=== PATIENT | female | born 1980 | race Caucasian/White ===

== ENCOUNTER → 2024-02-01 15:46 | Outpatient (REF) | payer OTHER, SELFPAY | LOC: WDC 15:46 | PROVIDERS: ATTENDING PHYSICIAN Family Medicine | DX: R22.1 Localized swelling, mass and lump, neck (principal); Z12.31 Encounter for screening mammogram for malignant neoplasm of breast | CPT/HCPCS: 76536; 77063; 77067 ==

== ENCOUNTER → 2024-04-27 15:19 | Outpatient (REF) | payer OTHER, SELFPAY | LOC: RAD 15:19 | PROVIDERS: ATTENDING PHYSICIAN Family Medicine | DX: S60.949A Unspecified superficial injury of unspecified finger, initial encounter (principal) | CPT/HCPCS: 73140 ==

== ENCOUNTER → 2024-09-08 15:43 | Outpatient (REF) | payer OTHER, SELFPAY ==
[2024-09-08 17:00] LABS: Urine Albumin Negative (Neg - Trace); Urine Bilirubin Negative (Negative); Urine Character Clear (Clear); Urine Color Yellow; Urine Glucose Negative (Negative); Urine Ketone Negative (Negative); Urine Leukocyte Negative (Negative); Urine Nitrite Negative (Negative); Urine Occult Blood Negative (Negative); Urine Specific Gravity 1.025 (<1.030); Urine Urobilinogen Negative (Neg - 1+)
[2024-09-08 17:03] LABS: % Basophils 0.5 % (0-2); % Eosinophils 0.5 % (0-6); % Immature Granulocytes 0.3 % (0-0.5); % Lymphocytes 35.3 % (20.5-51.1); % Monocytes 6.2 % (1.7-9.3); % Neutrophils 57.2 % (42.2-75.2); Absolute Lymphocytes 2.8 10^3/uL (1.2-3.4); Absolute Monocytes 0.5 10^3/uL (0.1-0.6); Absolute Neutrophils 4.5 10^3/uL (1.4-6.5); HCG, Urine Qualitative Screen Negative; Hematocrit 43.4 % (37.0-47.0); Hemoglobin 14.3 g/dL (12.0-16.0); Mean Corp Hgb Conc. 32.9 g/dL (33.0-37.0); Mean Corpuscular Hgb 30.6 pg (27.0-31.0); Mean Corpuscular Volume 92.7 fL (81.0-99.0); Mean Platelet Volume 9.7 fL (7.4-10.4); Nucleated Red Blood Cells % 0 %; Platelet Count 239 10^3/uL (130-400); Red Blood Cell Count 4.68 10^6/uL (4.20-5.40); Red Cell Dist. Width 11.9 % (11.5-14.5); White Blood Cell Count 7.8 10^3/uL (4.8-10.8)
[2024-09-08 17:18] LABS: ALT (SGPT) 28 U/L (0-35); AST (SGOT) 29 U/L (14-36); Albumin 4.8 g/dl (3.5-5.0); Alkaline Phosphatase 54 U/L (38-126); Blood Urea Nitrogen 17 mg/dl (7-17); Calcium 9.2 mg/dl (8.4-10.2); Carbon Dioxide 27 mmol/L (22-30); Chloride 100 mmol/L (98-107); Glucose 83 mg/dl (70-99); Potassium 4.7 mmol/L (3.5-5.1); Sodium 138 mmol/L (135-145); Total Bilirubin 0.5 mg/dl (0.2-1.3); Total Protein 7.7 g/dl (6.3-8.2); eGFR > 60.00
[2024-09-08 17:20] LABS: C-Reactive Protein < 5.00 mg/L (0.0-10.00)
== END ==
LOC: REG 15:43
PROVIDERS: ATTENDING PHYSICIAN Family Medicine
DX: R10.9 Unspecified abdominal pain (principal)
CPT/HCPCS: 36415; 80053; 81003; 81025; 85025; 86140

== ENCOUNTER → 2024-09-09 07:24 | Outpatient (REF) | payer OTHER, SELFPAY ==
[2024-09-09 13:34] LABS: Procalcitonin < 0.05 ng/ml (0.0-0.25)
== END ==
LOC: REG 07:24
PROVIDERS: ATTENDING PHYSICIAN Family Medicine
DX: R10.9 Unspecified abdominal pain (principal)
CPT/HCPCS: 36415; 84145

== ENCOUNTER 2024-10-24 17:58 | Emergency (ER) | payer OTHER, SELFPAY ==
[2024-10-24 18:09] VITALS: BP 106/79
--- NOTE | 2024-10-24 18:09 | ED.GENMED ---
ED Provider Triage
-
Patient seen by provider in Triage?: Seen in Triage
Attestation: A medical screening examination has been initiated by a qualified medical provider. Based on the assessment performed at this time, it has been determined that an emergent medical condition may exist and the patient has been informed
that further medical evaluation and possible additional diagnostic testing may be needed.
HPI: 44-year-old female presenting to the emergency department for evaluation of fever and flulike symptoms that started this past Thursday into Thursday, today had a temperature of 105.6 just prior to arrival. Took Motrin prior to arrival. 103
fever noted in triage. Patient also endorses cough and mild sore throat. Offered additional Tylenol which patient declined. COVID and flu testing ordered. Patient otherwise hemodynamically stable.
GENERAL: Alert , in no apparent distress
EYE: No visual abnormalities.
NECK: Trachea midline
ENT: No visible abnormalities.
LUNGS: No acute respiratory distress
NEUROLOGICAL: Alert and oriented
SKIN: Skin intact. No visible changes.
MUSCULOSKELETAL: Moving extremities normally
PSYCH: Normal and appropriate interaction.
This is a medical evaluation conducted in person to initiate diagnostic evaluation and provide initial therapeutics. Please see further documentation by the treating clinician.
History of Present Illness
General
Chief Complaint: Fever
Source: patient
Time Seen by Provider: 10/24/24 19:18
History of Present Illness
History of Present Illness:
44-year-old female presenting to the emergency department for evaluation of 2 days of flulike symptoms, cough, fever, body aches and generalized fatigue. No known sick contacts but patient was recently in [place] on a business trip. Patient
has been taking [id number] medicines with minimal relief. No other concerns presently
Past History
Past History
ED Past Medical History: Other (Interstitial cystitis)
ED Past Surgical History: None
Social History
Tobacco: Non-smoker
Alcohol: None
Drug: None
Personal:
Living: with family
Review of Systems
Review of Systems
All Other Systems: ROS reviewed and negative except as documented in HPI and ROS
Phy Exam
Physical Exam
Physical Exam:
GENERAL: Alert , in no apparent distress
EYE: conjunctiva clear
Head: Normocephalic atraumatic
NECK: Supple,
ENT: mmm.
LUNGS: no acute respiratory distress
NEUROLOGICAL: Alert and oriented
SKIN: Warm and dry, skin intact.
MUSCULOSKELETAL: well perfused.
PSYCH: Normal and appropriate interaction.
Scores
Heart Failure Risk
Heart Failure Risk Score: Not Applicable
Heart Score for Chest Pain Patients
STEMI patient?: Not applicable
Withdrawal Assessment of Alcohol
Withdrawal Assessment Completed?: Not applicable
Sepsis
Sepsis Screening
Sepsis Assessment: Sepsis Ruled Out
Sepsis Screen
Sepsis Screen: Sepsis Ruled Out
Date: 10/24/24
Time: 19:26
Course
Orders/Labs/Results
Orders:
Orders
10/24/24 18:17
Acetaminophen [Tylenol] 650 mg .ROUTE .STK-MED ONE
10/24/24 18:21
COVID-19 Antigen Urgent
Source: Nasal Swab
Influenza A+B Rapid Molecular Urgent
JOSE MANUEL Source: Nasal Swab
Specimen Description:
Acetaminophen [Tylenol] 650 mg PO NOW STA
Vital Signs
Initial and Last Documented VS:
Initial Vital Signs
Temp Pulse Resp BP Pulse Ox
103 F H 96 20 106/79 100
10/24/24 18:09 10/24/24 18:09 10/24/24 18:09 10/24/24 18:09 10/24/24 18:09
Last Documented Vital Signs
Temp Pulse Resp BP Pulse Ox
103 F H 96 20 106/79 100
10/24/24 18:09 10/24/24 18:09 10/24/24 18:09 10/24/24 18:09 10/24/24 18:09
MDM/Problems Addressed
Differential Diagnosis Includes:
COVID, flu, pneumonia
MDM/Problems Addressed:
44-year-old female presenting the ER for evaluation of 2 days of upper respiratory-like symptoms, fever, found to be febrile here temperature 103. Febrile at home to 105.7 temp orally. Took Motrin prior to arrival. Additional Tylenol given here.
COVID and flu testing ordered with flu test coming back positive. Prescription for Tamiflu sent to pharmacy. Patient advised on supportive measures. Otherwise stable for discharge home and aware of return precautions.
*Pulse Oximetry
Patient hypoxic: no
*Critical Care Note
Total Time (30-74mins, 75-104mins- exclusive of procedures): Not Applicable
ED Attending Note
-
Portions of this chart may have been created with voice recognition software.� Occasional wrong word or��sound alike� substitutions may have occurred due to the inherent limitations of voice recognition software.
Discharge Plan
Departure
Patient Disposition: Home (Routine Discharge)
Date of Disposition: 10/24/24
Time of Disposition: 19:22
Patient with high blood pressure during this ER visit?: No
Discharge Problem:
Influenza A
Instructions: Flu in adults - Discharge instructions
Prescriptions:
New
oseltamivir [Tamiflu] 75 mg capsule
75 mg PO BID 5 Days Qty: 10 0RF
No Action
oxycodone-acetaminophen [Percocet] 5-325 mg tablet
1 tab PO Q4HPRN PRN (Reason: pain) Qty: 15 0RF
valacyclovir [Valtrex] 500 mg Tablet
500 mg PO PRN PRN (Reason: Herpes Breakout)
Stand Alone Forms: Return to Work
Interventions
Interventions:
*Risk Screen - Suicide Last Done: 10/24/24 18:09
Discharge Date and Time
Print Language: MALTESE
[2024-10-24] MEDS: TYLENOL 650 MG PO (18:22)
[2024-10-24 19:01] LABS: COVID-19 Antigen Negative (Negative)
--- NOTE | 2024-10-24 19:42 | EDRN ---
Lennox OBRIEN evaluated the patient and updated patient on test results. Patient needed no new nursing care and was discharged by Lennox OBRIEN.
== END 2024-10-24 19:43 | disposition home or self-care (01) ==
LOC: EMR 17:58
PROVIDERS: Physician Assistant Medical; EMERGENCY PHYSICIAN Emergency Medicine; FAMILY PHYSICIAN Family Medicine
DX: J10.1 Influenza due to other identified influenza virus with other respiratory manifestations (principal)
CPT/HCPCS: 99283; 87502; 87811